=== PATIENT | female | born 1980 | race Caucasian/White ===

== ENCOUNTER 2021-09-27 12:41 | Emergency (ER) | payer SELFPAY ==
[~2021-09-27] VITALS: Ht 152.4 cm; Wt 86.0 kg
[2021-09-27] MEDS ORDERED: IV NORMAL SALINE 1000ML BAG 1,000 ML IV SCH (13:15)
--- NOTE | 2021-09-27 13:23 | PHYS DOC ---
Past Medical History Past Surgical History: Cholecystectomy Additional Past Surgical Histo: LEFT SIDE THYROID REMOVED General Adult EDM: Chief Complaint: ABDOMINAL PAIN HPI: HPI: Patient is a 40 year old female who presents with about 4 days ago she went to [facility] and diagnosed with a kidney stone. She states that she was given hydrocodone, Flomax, Zofran. Patient states that she is tired and nauseous. She states she is a 4-year-old at home and is makes it hard to take care of the 4-year-old. She states the pain medicine most likely is making her feel this way. She has not tried just ibuprofen. She states that last night she began having worsening right flank pain with some groin pain. Currently rates her pain 8 out of 10 and she has not taken any pain medication today. She has a history of a cholecystectomy and surgery on her thyroid. She denies chest pain, fever, painful urination, shortness of breath, vomiting, diarrhea, constipation, syncope, headache. Review of Systems: Review of Systems: Constitutional: Denies fever or chills. [] Eyes: Denies change in visual acuity. [] HENT: Denies nasal congestion or sore throat. [] Respiratory: Denies cough or shortness of breath. [] Cardiovascular: Denies chest pain or edema. [] GI: Denies abdominal pain, +nausea, denies vomiting, bloody stools or diarrhea. + Right lower groin/abdominal pain [] : Denies dysuria. [] Musculoskeletal: +Right lower back pain or denies joint pain. [] Integument: Denies rash. [] Neurologic: Denies headache, focal weakness or sensory changes. + Tired [] Endocrine: Denies polyuria or polydipsia. [] Lymphatic: Denies swollen glands. [] Psychiatric: Denies depression or anxiety. [] Heart Score: C/O Chest Pain: No Allergies: Allergies: Allergies Coded Allergies Type Severity Reaction Last Updated Verified No Known Drug Allergies 09/27/21 No Physical Exam: PE: Constitutional: Well developed, well nourished, no acute distress, non-toxic appearance. [] HENT: Normocephalic, atraumatic, bilateral external ears normal, oropharynx mois t, no oral exudates, nose normal. [] Eyes: PERRLA, EOMI, conjunctiva normal, no discharge. [] Neck: Normal range of motion, no tenderness, supple, no stridor. [] Cardiovascular:Heart rate regular rhythm, no murmur [] Lungs & Thorax: Bilateral breath sounds clear to auscultation [] Abdomen: Bowel sounds normal, soft, no tenderness, no masses, no pulsatile masses. [] Skin: Warm, dry, no erythema, no rash. [] Back: No tenderness, right CVA tenderness. [] Extremities: No tenderness, no cyanosis, no clubbing, ROM intact, no edema. [] Neurologic: Alert and oriented X 3, normal motor function, normal sensory function, no focal deficits noted. [] Psychologic: Affect normal, judgement normal, mood normal. [] Current Patient Data: Labs: Laboratory Tests Test 09/27/21 13:15 POC Urine HCG, Qualitative Hcg negative (Negative) Vital Signs: Vital Signs Date Time Temp Pulse Resp B/P (MAP) Pulse Ox O2 Delivery O2 Flow Rate FiO2 09/27/21 12:54 98.4 101 20 155/75 (101) 97 Room Air 98.4 EKG: EKG: [] Radiology/Procedures: Radiology/Procedures: [] Impression: [facility] [address] [place], [place] [id number] IMAGING REPORT Signed PATIENT: ROBERTO CARLOS RIVER DACCOUNT: [id number] : 1980 LOCATION: ER AGE: 40 SEX: F EXAM STATUS: REG ER ORD. PHYSICIAN: AMARA MCLEOD APRN REASON: DX KIDNEY STONE ON SATURDAY, WORSENING SYMPTOMS PROCEDURE: CT ABDOMEN PELVIS WO CONTRAST PQRS Compliance Statement: One or more of the following individualized dose reduction techniques were utilized for this examination: 1. Automated exposure control 2. Adjustment of the mA and/or kV according to patient size 3. Use of iterative reconstruction technique CT ABDOMEN+PELVIS WO Clinical Indication: Reason: DX KIDNEY STONE ON SATURDAY, WORSENING SYMPTOMS / Spl. Instructions: / History: Comparison: None. Technique: Helical CT imaging of the abdomen and pelvis is performed without IV or oral contrast. Findings: The lung bases are clear. Cardiac size normal. There is hepatomegaly. There is moderate fatty infiltration of the liver. Cholecystectomy. The spleen is borderline enlarged. The pancreas, adrenal glands, and abdominal aorta caliber are normal. There are at least 4 subcentimeter millimeters nonobstructing left renal calculi. There is no left hydronephrosis. There is a 5 mm calculus in the lower pole the right kidney. There is no appreciable right hydronephrosis. There is a 5 mm calculus in the proximal right ureter, image 133. No other ureteral calculus is identified. The stomach is unremarkable. There is no small bowel obstruction. There is no colon wall thickening. The appendix is normal. There is a 3.6 x 3.6 cm fat- containing umbilical hernia. There are subcentimeter retroperitoneal lymph nodes. There is no mesenteric adenopathy. The urinary bladder is mostly decompressed. Anteverted uterus. The ovaries are symmetric. No pelvic free fluid is seen. There is no acute bone abnormality. IMPRESSION: 1. There is a 5 mm calculus in the proximal right ureter. There is no appreciable obstructive uropathy. 2. There are bilateral nonobstructing renal calculi. 3. Hepatomegaly. Moderate fatty infiltration of the liver. 4. Spleen is borderline enlarged. 5. Moderate-sized fat-containing umbilical hernia. Electronically signed by: Cornelius Holloway MD (09/27/2021 1:48 PM) [id number] DICTATED and SIGNED BY: CORNELIUS HOLLOWAY MD DATE: 09/27/21 [id number] [place] [address] IMAGING REPORT Signed PATIENT: ROBERTO CARLOS RIVER DACCOUNT: [id number] : 1980 LOCATION: ER AGE: 40 SEX: F EXAM STATUS: REG ER ORD. PHYSICIAN: GONSALO POOLE DO REASON: LLQ pain PROCEDURE: CT ABD PELV W/ IV CONTRST ONLY EXAM: CT Abdomen and Pelvis with IV contrast CLINICAL HISTORY: Reason: LLQ pain / Spl. Instructions: / History: . COMPARISON: none TECHNIQUE: Helical CT of the abdomen and pelvis was performed following the administration of intravenous contrast. Axial, coronal and sagittal reformatted images were generated. PQRS compliance statement - One or more of the following individualized dose reduction techniques were utilized for this study: 1. Automated exposure control 2. Adjustment of the mA and/or kV according to patient size 3. Use of iterative reconstruction technique FINDINGS: Lower Chest: Visualized lung bases are clear. Abdomen and Pelvis: Diffuse hepatic steatosis. No focal hepatic abnormality. Gallbladder is surgically absent. The spleen, adrenals, and pancreas are unremarkable. There is a 4 mm calculus in the right proximal ureter with mild hydronephrosis. No additional ureteral calculi in the remaining course of the ureter. There is a additional nonobstructing stone in the inferior pole of the right kidney. There is some cortical scarring of the superior pole of the right kidney. There is a 8 mm hypoattenuating focus in the superior/interpolar region of the left kidney, too small to characterize favoring a benign etiology. There are a few punctate nonobstructing left renal calculi. No hydroureteronephrosis. Bladder is decompressed, precluding complete evaluation. Stomach is unremarkable. No evidence of bowel obstruction or focal inflammation. Mild amount of stool seen throughout the colon. Appendix is unremarkable. No free intra-abdominal air or free fluid. No pathologically enlarged abdominal or pelvic lymph nodes. Uterus is present. Hyperattenuating nodularity within the left uterine wall suggestive of a noncalcified intramural fibroid. Multiple nabothian cysts are present. Ovaries are unremarkable. Small fat-containing periumbilical fat-containing hernia. Bones: No acute or suspicious osseous abnormalities. Bilateral transitional anatomy of L5-S1. IMPRESSION: 1. Age-indeterminate 4 mm calculus in the right proximal ureter with mild hydronephrosis. 2. Bilateral nonobstructing nephrolithiasis. 3. Diffuse hepatic steatosis. 4. Other incidental nonacute findings, as above. Electronically signed by: Davide Storey DO (09/24/2021 10:14 AM) [facility] DICTATED AND SIGNED BY: DAVIDE STOREY DO DATE: 09/24/21 0958 CC: GONSALO POOLE DO; PCP,NO ~MTH0 0 Course & Med Decision Making: Course & Med Decision Making Pertinent Labs and Imaging studies reviewed. (See chart for details) See HPI. Alert and oriented x4. Ambulatory steady gait. Speaks in full clear sentences. Right CVA tenderness. Abdomen soft and nontender. Afebrile. Skin pink warm and dry. No distress. Urinalysis does not show infection. Patient no longer has hydronephrosis. I did add the ED from [facility] all to this chart so I can be compared to today's CT. Blood work is unremarkable. Patient is stable and she is tolerating fluid intake. Patient is educated that she has to follow-up with urology. Patient is given 2 L of normal saline in the ED to help push the stone along. She was also given Toradol, fentanyl, Zofran in the ED. [] Dragon Disclaimer: Dragon Disclaimer: This electronic medical record was generated, in whole or in part, using a voice recognition dictation system. Departure Departure Impression: Primary Impression: Kidney stone on right side Disposition: HOME / SELF CARE / HOMELESS Condition: STABLE Referrals: TOMMY GRADY MD Patient Instructions: Diet for Kidney Stones, Kidney Stones Additional Instructions: Follow-up with the urologist by calling the office first in the morning. Continue taking medications as prescribed and with food. You could take 800 mg ibuprofen instead of the hydrocodone since it makes you sleepy. If you cannot keep down any fluids or begin to run a fever return to the emergency room. Scripts Ibuprofen (IBUPROFEN) 800 Mg Tablet 800 MG PO PRN Q8HRS PRN for INFLAMMATION, #30 TAB Prov: AMARA MCLEOD [employer] ECOLOGY PROFESSOR 09/27/21 Ondansetron (ONDANSETRON ODT) 4 Mg Tab.rapdis 1 TAB PO PRN Q6-8HRS, #16 TAB Prov: AMARA MCLEOD [employer] ECOLOGY PROFESSOR 09/27/21 AMARA MCLEOD APRN Sep 27, 2021 13:23
[2021-09-27 13:28] LABS: BILIRUBIN,URINE NEGATIVE (NEG); CLARITY,URINE CLEAR; COLOR,URINE YELLOW
[2021-09-27 13:29] LABS: PH,URINE 5.5 (<5.0-8.0); PROTEIN,URINE NEGATIVE (NEG-TRACE); UROBILINOGEN,URINE 0.2 mg/dL (0.2 mg/dL)
[2021-09-27 13:30] LABS: BACTERIA,URINE 0 /HPF (0-FEW); NITRITE,URINE NEGATIVE (NEG); WBC,URINE 0 /HPF (0-4)
[2021-09-27 13:35] LABS: BASO # 0.1 x10^3/uL (0.0-0.2); BASO % 1 % (0-3); EOS # 0.2 x10^3/uL (0.0-0.7); EOS % 2 % (0-3); HEMATOCRIT 39.3 % (36.0-47.0); HEMOGLOBIN 12.7 g/dL (12.0-15.5); LYMPH # 2.4 x10^3/uL (1.0-4.8); LYMPH % 20 % (24-48); MEAN CORPUSCULAR HEMOGLOBIN 27 pg (25-35); MEAN CORPUSCULAR HGB CONC 32 g/dL (31-37); MEAN CORPUSCULAR VOLUME 82 fL (79-100); MONO # 0.6 x10^3/uL (0.0-1.1); MONO % 5 % (0-9); NEUT # 8.4 x10^3/uL (1.8-7.7); NEUT % 73 % (31-73); PLATELET COUNT 243 x10^3/uL (140-400); RED BLOOD COUNT 4.79 x10^6/uL (3.50-5.40); RED CELL DISTRIBUTION WIDTH 13.7 % (11.5-14.5); WHITE BLOOD COUNT 11.6 x10^3/uL (4.0-11.0)
[2021-09-27] MEDS ORDERED: KETOROLAC 30 MG/ML VIAL. IVP ONE (13:45)
[2021-09-27] MEDS ORDERED: fentaNYL PF VIAL 100 MCG/2 ML VIAL IVP ONE (13:45)
[2021-09-27] MEDS ORDERED: ONDANSETRON PF 4 MG/2 ML VIAL. IVP ONE (13:45)
--- NOTE | 2021-09-27 13:50 | RAD ---
PQRS Compliance Statement: One or more of the following individualized dose reduction techniques were utilized for this examinat ion: 1. Automated exposure control 2. Adjustment of the mA and/or kV according to patient size 3. Use of iterative reconstruction technique CT ABDOMEN+PELVIS WO Clinical Indication: Reason: DX KIDNEY STONE ON SATURDAY, WORSENING SYMPTOMS / Spl. Instructions: / Hi story: Comparison: None. Technique: Helical CT imaging of the abdomen and pelvis is performed without IV or oral contrast. Findings: The lung bases are clear. Cardiac size normal. There is hepatomegaly. There is moderate fatty infiltration of the liver. Cholecystectomy. The spleen is borderline enlarged. The pancreas, adrenal glands, and abdominal aorta caliber are normal. There are at least 4 subcentimeter millimeters nonobstructing left renal calculi. There is no left hy dronephrosis. There is a 5 mm calculus in the lower pole the right kidney. There is no appreciable ri ght hydronephrosis. There is a 5 mm calculus in the proximal right ureter, image 133. No other ureter al calculus is identified. The stomach is unremarkable. There is no small bowel obstruction. There is no colon wall thickening. The appendix is normal. There is a 3.6 x 3.6 cm fat-containing umbilical hernia. There are subcentime ter retroperitoneal lymph nodes. There is no mesenteric adenopathy. The urinary bladder is mostly decompressed. Anteverted uterus. The ovaries are symmetric. No pelvic f ree fluid is seen. There is no acute bone abnormality. IMPRESSION: 1. There is a 5 mm calculus in the proximal right ureter. There is no appreciable obstructive uropat hy. 2. There are bilateral nonobstructing renal calculi. 3. Hepatomegaly. Moderate fatty infiltration of the liver. 4. Spleen is borderline enlarged. 5. Moderate-sized fat-containing umbilical hernia. Electronically signed by: Cornelius Holloway MD (09/27/2021 1:48 PM) [id number]
[2021-09-27 14:15] LABS: CALCIUM 9.7 mg/dL (8.5-10.1); CREATININE 0.8 mg/dL (0.6-1.0); GFR 80.3; POTASSIUM 4.2 mmol/L (3.5-5.1)
[2021-09-27 14:18] LABS: ALBUMIN/GLOBULIN RATIO 1.1 (1.0-1.7); TOTAL BILIRUBIN 0.7 mg/dL (0.2-1.0); TOTAL PROTEIN 7.6 g/dL (6.4-8.2)
[2021-09-27] MEDS ORDERED: IBUP-1060 PO (14:40)
[2021-09-27] MEDS ORDERED: ONDA4TAB12 PO (14:40)
[2021-09-27] MEDS ORDERED: IV NORMAL SALINE 1000ML BAG 1,000 ML IV ONE (14:45)
[2021-09-27 15:21] VITALS: BP 132/67
== END 2021-09-27 16:07 | disposition home or self-care (01) ==
LOC: ER 12:41
DX: N13.2 Hydronephrosis with renal and ureteral calculous obstruction (principal); Z90.49 Acquired absence of other specified parts of digestive tract
CPT/HCPCS: 36415; 74176; 80053; 81001; 81025; 83690; 85025; 96361; 96374; 96375; 99284; J1885; J2405; J3010; J7030